=== PATIENT | female | born 1985 | race Caucasian/White ===

== ENCOUNTER 2017-01-10 21:07 | Inpatient (IN) | payer BC, OTHER ==
[2017-01-10] MEDS ORDERED: Metoclopramide 10 MG/2 ML SDV IVPUSH ONE (22:01)
[2017-01-10] MEDS ORDERED: ceFAZolin 2 GM in Premix Bag 1 BAG IV ONE (22:01)
[2017-01-10] MEDS ORDERED: Citric Acid/Sodium Citrate Solution 30 ML Cup PO ONE (22:01)
[2017-01-10] MEDS ORDERED: Sodium Chloride 0.9% 10 ML Syringe FLUSH PRN (22:01)
--- NOTE | 2017-01-10 22:13 | PCM.LDHP ---
L&D History of Present Illness - General Date of Service: 01/10/17 Admit Problem/Dx: Patient Status Order with Admit Dx/Problem 01/10/17 22:01 Patient Status [ADT] Routine Admission Diagnosis/Problem Admission Diagnosis/Problem Normal Source of Information: Patient History Limitations: Reports: No limitations - History of Present Illness Introduction:: Patient is a 31 y.o at 38 2/7 wks who presents tonight with right sided groin pain, back pain, and cramping. States this started about 2 hours ago. Has felt nauseated with this as well and has thrown up about 3 times. No bleeding or LOF. Getting good FM. Was scheduled for RLTCS next week per her preference. 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 LMP (Approximate): Endocrine/Metabolic History: Reports: Obesity/BMI 30+ - Past Surgical History Female Surgical History: Reports: section (2007) Social & Family History - Family History Family Medical History: Noncontributory - Tobacco Use Smoking Status *Q: Former Smoker - Alcohol Use Alcohol Use History: No - Recreational Drug Use Recreational Drug Use: No H&P Review of Systems - Review of Systems: Review Of Systems: See Below General: Reports: no symptoms Pulmonary: Reports: No Symptoms Cardiovascular: Reports: no symptoms Gastrointestinal: Reports: Abdominal pain, Nausea Genitourinary: Reports: no symptoms Musculoskeletal: Reports: back pain Skin: Reports: no symptoms Psychiatric: Reports: no symptoms L&D Exam - Exam Exam: See Below - OB Specific Contraction Intensity: Moderate movement: active heart tones: present heart tones per min: 145 Heart Rate (FHR) Variability: Moderate (6-25 bmp) Presentation: Vertex - Colbert Score Colbert Score Cervix Position: Midposition Colbert Score Consistency: Soft Colbert Score Effacement: >80% Colbert Score Dilation: 3-4 cm Colbert Score Infant's Station: -2 Colbert Score Total: 9 - Exam General: alert, oriented, cooperative Lungs: Clear to auscultation, Normal respiratory effort Cardiovascular: regular rate, regular rhythm Abdomen: Soft Genitourinary: Normal external exam Back Exam: normal inspection Extremities: normal inspection Skin: warm, dry, intact - Problem List (1) 38 weeks gestation of SNOMED Code(s): 40734849 ICD Code: Z3A.38 - 38 WEEKS GESTATION OF Status: Acute Current Visit: Yes (2) History of SNOMED Code(s): 694046506 ICD Code: Z98.891 - HISTORY OF UTERINE SCAR FROM PREVIOUS SURGERY Status: Acute Current Visit: Yes Problem List Initiated/Reviewed/Updated: Yes Orders Last 24hrs: Active Orders 24 hr Category Date Time Status Patient Status [ADT] Routine ADT 01/10/17 22:01 Ordered Communication Order [RC] ROUTINE Care 01/10/17 22:01 Ordered Heart Tones [RC] PER UNIT ROUTINE Care 01/10/17 22:01 Ordered Peripheral IV Care [RC] . DIRECTED Care 01/10/17 22:02 Ordered Procedure Site Prep Instruct [RC] ASDIRECTED Care 01/10/17 22:01 Ordered Verify Patient Consent Obtain [RC] PER UNIT ROUTINE Care 01/10/17 22:01 Ordered Vital Signs [RC] PFP Care 01/10/17 22:01 Ordered CBC W/O DIFF,HEMOGRAM [HEME] Routine Lab 01/10/17 22:01 Ordered TYPE AND SCREEN [BBK] Routine Lab 01/10/17 22:01 Ordered Citric Acid/Sodium Citrate [Bicitra Solution] Med 01/10/17 22:01 Once 30 ml PO ONETIME ONE Lactated Ringers @ 125 MLS/HR(1000ml) Med 01/10/17 22:15 Ordered Lactated Ringers [Ringers, Lactated] 1,000 ml IV ASDIRECTED Metoclopramide [Reglan] Med 01/10/17 22:01 Once 10 mg IVPUSH ONETIME ONE Sodium Chloride 0.9% [Saline Flush] Med 01/10/17 22:01 Ordered 10 ml FLUSH ASDIRECTED PRN ceFAZolin [Ancef] 2 gm Med 01/10/17 22:01 Ordered Premix Bag 1 bag IV ONETIME Peripheral IV Insertion Adult [OM.PC] Routine Oth 01/10/17 22:01 Ordered Schedule Procedure [COMM] Per Unit Routine Oth 01/10/17 22:01 Ordered Resuscitation Status Routine Resus Stat 01/10/17 22:01 Ordered Assessment/Plan Comment:: 31 y/o at 38 2/7 wks who presents tonight with groin/back pain and findings of cervical change and significant effacement since last clinical exam - likely early labor. Again discussed option of TOLAC as patient is here in spontaneous labor, but she declines. Would like to proceed with RLTCS. * CBC and T&S * NPO * Ancef OCTOR * Consent reviewed and signed Marina Quan MD
[2017-01-10] MEDS ORDERED: Lactated Ringers 1,000 ML IV SCH (22:15)
--- NOTE | 2017-01-10 22:28 | PCM.OPNOTE ---
- General Post-Op/Procedure Note Date of Surgery/Procedure: 01/10/17 Operative Procedure(s): Repeat low transverse Findings: * Minimal scar tissue noted between the rectus and fascia. Minimal scar tissue between uterus and bladder * Baby girl in a vertex presentation with APGARS of 6 & 8 and weight of 8 lbs 11 oz * Normal appearance to the uterus and ovaries. Right sided fallopian tube dilated consistent with known hydrosalpinx. Pre Op Diagnosis: 38 3/7 wks gestation. Labor. History of , declines TOLAC Post-Op Diagnosis: Same Anesthesia Technique: Spinal Primary Surgeon: Marina Quan Secondary Surgeon: Rufino Gamino Jr Anesthesia Provider: Libertad Whitley Pathology: * Cord blood collected * Placenta discarded Fluid Replacement, Intraop: 2,500 Output, Urine Amount: 225 EBL in mLs: 1,200 Complications: None Condition: Good Free Text/Narrative:: The risks, benefits, indications, potential complications, and alternatives were explained to the patient and informed consent obtained. After induction of anesthesia, the patient was placed in a supine position and then draped and prepped in the usual sterile manner. A Pfannenstiel incision was made and carried down through the subcutaneous tissue to the fascia. Fascial incision was made and extended transversely. The fascia was from the underlying rectus tissue superiorly and inferiorly. The peritoneum was identified and entered. Peritoneal incision was extended longitudinally. The utero-vesical peritoneal reflection was incised transversely and the bladder flap was bluntly freed from the lower uterine segment. A low transverse uterine incision was made sharply with a scalpel and extended bluntly in a cephalocaudad direction. A baby girl was delivered from a vertex presentation with APGARS as above. After the umbilical cord was clamped and cut cord blood was obtained for evaluation. The placenta was removed intact and appeared normal. The uterus was exteriorized and cleared of clots. The uterine outline and ovaries appeared normal. There was findings of known hydrosalpinx of right fallopian tube The uterine incision was closed with running locked sutures of 0 Vicryl. At this time poor uterine tone noted and so dose of methergine given. Hemostasis was obtained with a second imbricating layer of 0 vicryl. Uterine tone improved by this time. The uterus was then placed back into the abdomen. The infracolic gutters were cleared of blood clots. The fascia was then reapproximated with running sutures of 0 Vicryl. The sucutaneous tissue was irrigated with sterile warm normal saline, hemostasis obtained with cautery. This layer was closed with a running 0 vicryl suture. The skin was reapproximated with running Subcuticular 4-0 monocryl sutures. Instrument, sponge, and needle counts were correct prior the abdominal closure and at the conclusion of the case.
[2017-01-10] MEDS ORDERED: Oxytocin 10 Units/1 ML SDV ONE (23:24)
[2017-01-10] MEDS ORDERED: Lactated Ringers 2,000 ML ONE (23:24)
[2017-01-10] MEDS ORDERED: ceFAZolin 1 GM Vial ONE (23:24)
[2017-01-10] MEDS ORDERED: Ketorolac 30 MG/ML SDV ONE (23:24)
[2017-01-10] MEDS ORDERED: Morphine PF 10 MG/10 ML SDV ONE (23:24)
[2017-01-10] MEDS ORDERED: Ondansetron 4 MG/2 ML SDV ONE (23:24)
--- NOTE | 2017-01-11 00:05 | PCM.PREANE ---
Preanesthetic Assessment - Anesthesia/Transfusion/Family Hx Anesthesia History: Prior Anesthesia Without Reaction Family History of Anesthesia Reaction: No Transfusion History: No Prior Transfusion(s) - Review of Systems General: No Symptoms Pulmonary: No Symptoms Cardiovascular: No Symptoms Gastrointestinal: No symptoms Neurological: No Symptoms Other: Reports: None - Physical Assessment O2 Sat by Pulse Oximetry: 100 Respiratory Rate: 16 Vital Signs: Last Vital Signs Temp 99.2 F 01/10/17 22:01 Pulse 84 01/10/17 22:01 Resp 16 01/10/17 22:01 BP 130/79 01/10/17 22:01 Pulse Ox 100 01/10/17 22:01 Height: 5 ft 6 in Weight: 144.696 kg ASA Class: 2E Mental Status: Alert & Oriented x3 Airway Class: Mallampati = 1 Dentition: Reports: Normal Dentition Thyro-Mental Finger Breadths: 3 Mouth Opening Finger Breadths: 3 ROM/Head Extension: Full Lungs: Clear to auscultation, Normal respiratory effort Cardiovascular: Regular Rate, Regular Rhythm - Lab Values: Laboratory Last Values WBC 13.06 K/mm3 (3.98-10.04) H 01/10/17 22:16 RBC 4.43 M/mm3 (3.98-5.22) 01/10/17 22:16 Hgb 12.9 gm/L (11.2-15.7) 01/10/17 22:16 Hct 38.8 % (34.1-44.9) 01/10/17 22:16 MCV 87.6 fl (79.4-94.8) 01/10/17 22:16 MCH 29.1 pg (25.6-32.2) 01/10/17 22:16 MCHC 33.2 g/dl (32.2-35.5) 01/10/17 22:16 RDW Std Deviation 46.4 fL (36.4-46.3) H 01/10/17 22:16 Plt Count 293 K/mm3 (182-369) 01/10/17 22:16 MPV 10.4 fl (9.4-12.3) 01/10/17 22:16 - Allergies Allergies/Adverse Reactions: Allergies Allergy/AdvReac Type Severity Reaction Status Date / Time No Known Allergies Allergy Verified 01/10/17 22:26 - Blood Blood Available: No - Acknowledgements Anesthesia Type Planned: Spinal Pt an Appropriate Candidate for the Planned Anesthesia: Yes Alternatives and Risks of Anesthesia Discussed w Pt/Guardian: Yes Pt/Guardian Understands and Agrees with Anesthesia Plan: Yes PreAnesthesia Questionnaire Other HEENT History: wears glasses and states she snores Cardiovascular History: Reports: None Respiratory History: Reports: Other (see below) Other Respiratory History: pt snores Gastrointestinal History: Reports: GERD (with preg) 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 Endocrine/Metabolic History: Reports: Obesity/BMI 30+ Other Endocrine/Metabolic History: states she is pre diabetic Oncologic (Cancer) History: Reports: None - Infectious Disease History Infectious Disease History: Reports: Chicken pox, Measles - Past Surgical History Female Surgical History: Reports: section (2007) - History Comment History Comment: vits and zyrtec for seasonal allergies and zantac for GERD - SUBSTANCE USE Smoking Status *Q: Former Smoker (quit 10 years ago) Tobacco Use Within Last Twelve Months: No Second Hand Smoke Exposure: No Days Per Week of Alcohol Use: 0 Recreational Drug Use History: No - CURRENT (IN HOUSE) MEDS Current Meds: Current Medications Lactated Ringer's (Ringers, Lactated) 1,000 mls @ 125 mls/hr IV ASDIRECTED [facility] Last Admin: 01/10/17 22:36 Dose: 125 mls/hr Sodium Chloride (Saline Flush) 10 ml FLUSH ASDIRECTED PRN PRN Reason: Keep Vein Open Discontinued Medications Cefazolin Sodium (Ancef) Confirm Administered Dose 2 gm .ROUTE .STK-MED ONE Stop: 01/10/17 23:25 Citric Acid/Sodium Citrate (Bicitra Solution) 30 ml PO ONETIME ONE Stop: 01/10/17 22:02 Last Admin: 01/10/17 22:38 Dose: 30 ml Cefazolin Sodium/Dextrose 2 gm (/ Premix) 50 mls @ 100 mls/hr IV ONETIME ONE Stop: 01/10/17 22:30 Lactated Ringer's (Ringers, Lactated) Confirm Administered Dose 2,000 mls @ as directed .ROUTE .STK-MED ONE Stop: 01/10/17 23:25 Ketorolac Tromethamine (Toradol) Confirm Administered Dose 30 mg .ROUTE .STK- MED ONE Stop: 01/10/17 23:25 Metoclopramide HCl (Reglan) 10 mg IVPUSH ONETIME ONE Stop: 01/10/17 22:02 Last Admin: 01/10/17 22:37 Dose: 10 mg Morphine Sulfate (Duramorph Pf) Confirm Administered Dose 10 mg .ROUTE .STK-MED ONE Stop: 01/10/17 23:25 Ondansetron HCl (Zofran) Confirm Administered Dose 4 mg .ROUTE .STK-MED ONE Stop: 01/10/17 23:25 Oxytocin (Pitocin) Confirm Administered Dose 10 unit .ROUTE .STK-MED ONE Stop: 01/10/17 23:25
[2017-01-11] MEDS ORDERED: ceFAZolin 1 GM Vial ONE (00:34)
[2017-01-11] MEDS ORDERED: Methylergonovine 0.2 MG/1 ML Amp ONE (00:35)
[2017-01-11] MEDS ORDERED: fentaNYL 100 MCG/2 ML SDV IVPUSH PRN (00:43)
[2017-01-11] MEDS ORDERED: Ondansetron 4 MG/2 ML SDV IVPUSH PRN (00:43)
[2017-01-11] MEDS ORDERED: diphenhydrAMINE 50 MG/ML SDV IVPUSH PRN ×2 (00:43→04:53)
[2017-01-11] MEDS ORDERED: Meperidine PF 50 MG/ML Syringe IVPUSH PRN (00:43)
[2017-01-11] MEDS ORDERED: ePHEDrine/Normal Saline 25 MG/5 ML Syringe ONE (00:45)
--- NOTE | 2017-01-11 01:23 | PCM.POSTAN ---
POST ANESTHESIA ASSESSMENT - MENTAL STATUS Mental Status: alert, oriented - VITAL SIGNS Pulse Rate: 67 SaO2: 100 Resp Rate: 18 Blood Pressure: 119/68 Temperature: 98.3 F - RESPIRATORY Respiratory Status: respiratory rate WNL, airway patent, O2 saturation stable, supplemental oxygen - CARDIOVASCULAR CV Status: pulse rate WNL, blood pressure stable - GASTROINTESTINAL GI Status: no symptoms - PAIN Pain Score: 0 - POST OP HYDRATION Hydration Status: adequate & stable
[2017-01-11] MEDS ORDERED: Dextrose 5%-Lactated Ringers 1,000 ML ONE (04:27)
[2017-01-11] MEDS ORDERED: Acetaminophen/oxyCODONE 325-5 MG Tab PO PRN (04:53)
[2017-01-11] MEDS ORDERED: Docusate Sodium 100 MG Cap PO PRN (04:53)
[2017-01-11] MEDS ORDERED: Dextrose 5%-Lactated Ringers 1,000 ML IV SCH (04:53)
[2017-01-11] MEDS: Ketorolac 30 MG/ML SDV IVPUSH SCH ×3 (08:00→20:03)
[2017-01-12] MEDS ORDERED: Ibuprofen 600 MG Tab PO PRN (01:30)
--- NOTE | 2017-01-12 05:27 | PCM.PNPP ---
- General Info Date of Service: 01/12/17 Functional Status: Reports: pain controlled, tolerating diet, ambulating, urinating - Review of Systems General: Reports: No Symptoms Pulmonary: Reports: no symptoms Cardiovascular: Reports: No Symptoms Gastrointestinal: Reports: Abdominal pain (managed with medications) Genitourinary: Reports: no symptoms Musculoskeletal: Reports: no symptoms Neurological: Reports: No Symptoms - Patient Data Vital Signs - most recent: Last Vital Signs Temp 37.2 C 01/12/17 03:19 Pulse 64 01/12/17 03:19 Resp 14 01/12/17 03:19 BP 159/84 H 01/12/17 03:19 Pulse Ox 100 01/12/17 03:19 Weight - most recent: 144.696 kg I&O - last 24 hours: Intake & Output 01/11/17 01/11/17 01/12/17 14:59 22:59 06:59 Intake Total 4040 360 Output Total 1725 Balance 2315 360 Lab Results - last 24 hrs: Laboratory Results - last 24 hr 01/10/17 Range/Units 22:16 Blood Type A POSITIVE Gel Antibody Screen Negative Med Orders - Current: Current Medications Diphenhydramine HCl (Benadryl) 25 mg IVPUSH Q6H PRN PRN Reason: Itching or Nausea Last Admin: 01/11/17 11:13 Dose: 25 mg Docusate Sodium (Colace) 100 mg PO Q12H PRN PRN Reason: Constipation Ibuprofen (Motrin) 600 mg PO Q6H PRN PRN Reason: mild pain or fever Oxycodone/Acetaminophen (Percocet 325-5 Mg) 2 tab PO Q4H PRN PRN Reason: Pain (moderate 4-6) Discontinued Medications Cefazolin Sodium (Ancef) Confirm Administered Dose 2 gm .ROUTE .STK-MED ONE Stop: 01/10/17 23:25 Cefazolin Sodium (Ancef) Confirm Administered Dose 1 gm .ROUTE .STK-MED ONE Stop: 01/11/17 00:35 Citric Acid/Sodium Citrate (Bicitra Solution) 30 ml PO ONETIME ONE Stop: 01/10/17 22:02 Last Admin: 01/10/17 22:38 Dose: 30 ml Diphenhydramine HCl (Benadryl) 25 mg IVPUSH Q6H PRN PRN Reason: pruritis Stop: 01/11/17 03:00 Ephedrine Sulfate (Ephedrine In Ns) Confirm Administered Dose 25 mg .ROUTE .STK- MED ONE Stop: 01/11/17 00:46 Fentanyl (Sublimaze) 50 mcg IVPUSH Q5M PRN PRN Reason: Pain Stop: 01/11/17 03:00 Lactated Ringer's (Ringers, Lactated) 1,000 mls @ 125 mls/hr IV ASDIRECTED [facility] Last Admin: 01/10/17 22:36 Dose: 125 mls/hr Cefazolin Sodium/Dextrose 2 gm (/ Premix) 50 mls @ 100 mls/hr IV ONETIME ONE Stop: 01/10/17 22:30 Last Admin: 01/11/17 04:56 Dose: Not Given Lactated Ringer's (Ringers, Lactated) Confirm Administered Dose 2,000 mls @ as directed .ROUTE .STK-MED ONE Stop: 01/10/17 23:25 Dextrose/Lactated Ringer's (Dextrose 5%-Lactated Ringers) Confirm Administered Dose 1,000 mls @ as directed .ROUTE .STK-MED ONE Stop: 01/11/17 04:28 Last Admin: 01/11/17 04:56 Dose: Not Given Dextrose/Lactated Ringer's (Dextrose 5%-Lactated Ringers) 1,000 mls @ 125 mls/ hr IV ASDIRECTED [facility] Stop: 01/11/17 12:52 Last Admin: 01/11/17 04:33 Dose: 125 mls/hr Ketorolac Tromethamine (Toradol) Confirm Administered Dose 30 mg .ROUTE .STK- MED ONE Stop: 01/10/17 23:25 Ketorolac Tromethamine (Toradol) 30 mg IVPUSH Q6H [facility] Stop: 01/11/17 19:31 Last Admin: 01/11/17 20:03 Dose: 30 mg Meperidine HCl (Demerol) 12.5 mg IVPUSH ONETIME PRN PRN Reason: shivering Stop: 01/12/17 00:44 Methylergonovine Maleate (Methergine) Confirm Administered Dose 0.4 mg .ROUTE .STK-MED ONE Stop: 01/11/17 00:36 Last Admin: 01/11/17 00:40 Dose: 0.2 mg Metoclopramide HCl (Reglan) 10 mg IVPUSH ONETIME ONE Stop: 01/10/17 22:02 Last Admin: 01/10/17 22:37 Dose: 10 mg Morphine Sulfate (Duramorph Pf) Confirm Administered Dose 10 mg .ROUTE .STK-MED ONE Stop: 01/10/17 23:25 Ondansetron HCl (Zofran) Confirm Administered Dose 4 mg .ROUTE .STK-MED ONE Stop: 01/10/17 23:25 Ondansetron HCl (Zofran) 4 mg IVPUSH ONETIME PRN PRN Reason: Nausea/Vomiting Stop: 01/11/17 03:00 Last Admin: 01/11/17 02:06 Dose: 4 mg Oxytocin (Pitocin) Confirm Administered Dose 10 unit .ROUTE .STK-MED ONE Stop: 01/10/17 23:25 Sodium Chloride (Saline Flush) 10 ml FLUSH ASDIRECTED PRN PRN Reason: Keep Vein Open - Interaction Infant Disposition, : [place] in Room with Family Infant Interaction: Holding Infant Feeding: Bottle Fed Infant Support Person: - Recovery Exam Fundal Tone: Firm Fundal Level: 1 Fingerbreadths Below Umbilicus Fundal Placement: Midline Lochia Amount: Small Lochia Color: Rubra/Red Perineum Description: Intact, Minimal Bruising/Swelling Bladder Status: Nonpalpable, Voiding Urinary Elimination: Indwelling Catheter - Exam General: alert, oriented, cooperative Lungs: Clear to auscultation, Normal respiratory effort Cardiovascular: Regular Rate, Regular Rhythm Abdomen: soft, tenderness (appropriate post op) Extremities: edema Skin: warm, dry, intact - Problem List & Annotations (1) 38 weeks gestation of SNOMED Code(s): 24855557 Code(s): Z3A.38 - 38 WEEKS GESTATION OF Status: Acute Current Visit: Yes (2) History of SNOMED Code(s): 813141503 Code(s): Z98.891 - HISTORY OF UTERINE SCAR FROM PREVIOUS SURGERY Status: Acute Current Visit: Yes (3) S/P SNOMED Code(s): 198876374, 534462573 Code(s): Z98.891 - HISTORY OF UTERINE SCAR FROM PREVIOUS SURGERY Status: Acute Current Visit: Yes - Problem List Review Problem List Initiated/Reviewed/Updated: Yes - My Orders Last 24 Hours: My Active Orders 01/11/17 04:53 Activity as Tolerated [RC] .Routine Antiembolic Devices [RC] PER UNIT ROUTINE Communication Order [RC] PER UNIT ROUTINE May Shower [RC] PER UNIT ROUTINE Notify Provider Intake and Out [RC] ASDIRECTED RT Incentive Spirometry [RC] Q2HWA Vital Signs [RC] Q4HR Acetaminophen/oxyCODONE [Percocet 325-5 MG] 2 tab PO Q4H PRN Docusate Sodium [Colace] 100 mg PO Q12H PRN diphenhydrAMINE [Benadryl] 25 mg IVPUSH Q6H PRN Assess Lochia [WOMSER] Per Unit Routine Assess Uterine Involution [WOMSER] Per Unit Routine Heat Therapy [OM.PC] Per Unit Routine Peripheral IV Discontinue [OM.PC] Routine Sequential Compression Device [OM.PC] Per Unit Routine 01/11/17 Breakfast Regular Diet [DIET] 01/12/17 01:30 Ibuprofen [Motrin] 600 mg PO Q6H PRN 01/12/17 05:11 CBC W/O DIFF,HEMOGRAM [HEME] AM - Assessment Assessment:: 31 y/o G3 now P2012 POD#1 from [facility] at 38 3/7 wks - Plan Plan:: Post op * Routine cares * Bottle feeding * Requests discharge today. Surgery was just after mid-night and so is on 2nd day of recovery even though only POD#1. Feel this is reasonable. Will follow up in 1-2 weeks for incision check
--- NOTE | 2017-01-12 06:59 | PCM.DCSUM1 ---
Discharge Summary - Discharge Data Discharge Date: 01/12/17 Discharge Disposition: Home, Self-Care 01 Condition: Good - Discharge Diagnosis/Problem(s) (1) 38 weeks gestation of SNOMED Code(s): 55904756 ICD Code: Z3A.38 - 38 WEEKS GESTATION OF Status: Acute Current Visit: Yes (2) History of SNOMED Code(s): 449249033 ICD Code: Z98.891 - HISTORY OF UTERINE SCAR FROM PREVIOUS SURGERY Status: Acute Current Visit: Yes (3) S/P SNOMED Code(s): 827845471, 732298226 ICD Code: Z98.891 - HISTORY OF UTERINE SCAR FROM PREVIOUS SURGERY Status: Acute Current Visit: Yes - Patient Summary/Data Operative Procedure(s) Performed: Repeat low transverse Complications: None Consults: None Recommended Follow-up Testing/Procedures: Follow up in 1-2 weeks for incision check and in 5-6 weeks for check Hospital Course: 31 y/o at 38 2/7 wks presented in early labor. She was taken for RLTCS per her preference. See operative note for full details. she did well and was discharged home on POD#1 per her request. - Patient Instructions Diet: Regular Diet as Tolerated Activity: No Lifting Over 10 Pounds Activity, Other: Pelvic Rest for 6 weeks Driving: Do Not Drive (While taking narcotics ) Showering/Bathing: May Shower, No Tub Bathing/Swimming Wound/Incision Care: Keep Operative Site/Wound Site Clean and Dry Notify Provider of: Fever, Increased Pain, Swelling and Redness, Drainage, Nausea and/or Vomiting - Discharge Plan Prescriptions/Med Rec: Acetaminophen/oxyCODONE [Percocet 325-5 MG] 2 tab PO Q4H PRN #30 tablet PRN Reason: Pain Home Medications: Home Meds Pnv with Ca,No.72/Iron/Fa [Pnv Plus Multivit Tab] 1 each PO DAILY 01/11 [History] Acetaminophen/oxyCODONE [Percocet 325-5 MG] 2 tab PO Q4H PRN #30 tablet [Rx] Docusate Sodium [Colace] 100 mg PO Q12H PRN #0 cap 01/12/17 [Rx] Ibuprofen [IJD: Ibuprofen] 600 mg PO Q6H PRN #0 tablet 01/12/17 [Rx] Referrals: Marina Quan MD [Primary Care Provider] - (1-2 weeks for incision check 5-6 weeks for check Please call and make appointments that work with your schedule. ) - Discharge Summary/Plan Comment DC Time >30 min.: No - Patient Data Vitals - Most Recent: Last Vital Signs Temp 37.2 C 01/12/17 03:19 Pulse 64 01/12/17 03:19 Resp 14 01/12/17 03:19 BP 159/84 H 01/12/17 03:19 Pulse Ox 100 01/12/17 03:19 Weight - Most Recent: 144.696 kg I&O - Last 24 hours: Intake & Output 01/11/17 01/11/17 01/12/17 14:59 22:59 06:59 Intake Total 4040 360 Output Total 1725 Balance 2315 360 Lab Results - Last 24 hrs: Laboratory Results - last 24 hr 01/10/17 01/12/17 Range/Units 22:16 06:05 WBC 13.58 H (3.98-10.04) K/mm3 RBC 3.50 L (3.98-5.22) M/mm3 Hgb 10.2 L (11.2-15.7) gm/L Hct 31.7 L (34.1-44.9) % MCV 90.6 (79.4-94.8) fl MCH 29.1 (25.6-32.2) pg MCHC 32.2 (32.2-35.5) g/dl RDW Std Deviation 46.9 H (36.4-46.3) fL Plt Count 256 (182-369) K/mm3 MPV 10.5 (9.4-12.3) fl Blood Type A POSITIVE Gel Antibody Screen Negative Med Orders - Current: Current Medications Diphenhydramine HCl (Benadryl) 25 mg IVPUSH Q6H PRN PRN Reason: Itching or Nausea Last Admin: 01/11/17 11:13 Dose: 25 mg Docusate Sodium (Colace) 100 mg PO Q12H PRN PRN Reason: Constipation Ibuprofen (Motrin) 600 mg PO Q6H PRN PRN Reason: mild pain or fever Oxycodone/Acetaminophen (Percocet 325-5 Mg) 2 tab PO Q4H PRN PRN Reason: Pain (moderate 4-6) Discontinued Medications Cefazolin Sodium (Ancef) Confirm Administered Dose 2 gm .ROUTE .STK-MED ONE Stop: 01/10/17 23:25 Cefazolin Sodium (Ancef) Confirm Administered Dose 1 gm .ROUTE .STK-MED ONE Stop: 01/11/17 00:35 Citric Acid/Sodium Citrate (Bicitra Solution) 30 ml PO ONETIME ONE Stop: 01/10/17 22:02 Last Admin: 01/10/17 22:38 Dose: 30 ml Diphenhydramine HCl (Benadryl) 25 mg IVPUSH Q6H PRN PRN Reason: pruritis Stop: 01/11/17 03:00 Ephedrine Sulfate (Ephedrine In Ns) Confirm Administered Dose 25 mg .ROUTE .STK- MED ONE Stop: 01/11/17 00:46 Fentanyl (Sublimaze) 50 mcg IVPUSH Q5M PRN PRN Reason: Pain Stop: 01/11/17 03:00 Lactated Ringer's (Ringers, Lactated) 1,000 mls @ 125 mls/hr IV ASDIRECTED [facility] Last Admin: 01/10/17 22:36 Dose: 125 mls/hr Cefazolin Sodium/Dextrose 2 gm (/ Premix) 50 mls @ 100 mls/hr IV ONETIME ONE Stop: 01/10/17 22:30 Last Admin: 01/11/17 04:56 Dose: Not Given Lactated Ringer's (Ringers, Lactated) Confirm Administered Dose 2,000 mls @ as directed .ROUTE .STK-MED ONE Stop: 01/10/17 23:25 Dextrose/Lactated Ringer's (Dextrose 5%-Lactated Ringers) Confirm Administered Dose 1,000 mls @ as directed .ROUTE .STK-MED ONE Stop: 01/11/17 04:28 Last Admin: 01/11/17 04:56 Dose: Not Given Dextrose/Lactated Ringer's (Dextrose 5%-Lactated Ringers) 1,000 mls @ 125 mls/ hr IV ASDIRECTED [facility] Stop: 01/11/17 12:52 Last Admin: 01/11/17 04:33 Dose: 125 mls/hr Ketorolac Tromethamine (Toradol) Confirm Administered Dose 30 mg .ROUTE .STK- MED ONE Stop: 01/10/17 23:25 Ketorolac Tromethamine (Toradol) 30 mg IVPUSH Q6H [facility] Stop: 01/11/17 19:31 Last Admin: 01/11/17 20:03 Dose: 30 mg Meperidine HCl (Demerol) 12.5 mg IVPUSH ONETIME PRN PRN Reason: shivering Stop: 01/12/17 00:44 Methylergonovine Maleate (Methergine) Confirm Administered Dose 0.4 mg .ROUTE .STK-MED ONE Stop: 01/11/17 00:36 Last Admin: 01/11/17 00:40 Dose: 0.2 mg Metoclopramide HCl (Reglan) 10 mg IVPUSH ONETIME ONE Stop: 01/10/17 22:02 Last Admin: 01/10/17 22:37 Dose: 10 mg Morphine Sulfate (Duramorph Pf) Confirm Administered Dose 10 mg .ROUTE .STK-MED ONE Stop: 01/10/17 23:25 Ondansetron HCl (Zofran) Confirm Administered Dose 4 mg .ROUTE .STK-MED ONE Stop: 01/10/17 23:25 Ondansetron HCl (Zofran) 4 mg IVPUSH ONETIME PRN PRN Reason: Nausea/Vomiting Stop: 01/11/17 03:00 Last Admin: 01/11/17 02:06 Dose: 4 mg Oxytocin (Pitocin) Confirm Administered Dose 10 unit .ROUTE .STK-MED ONE Stop: 01/10/17 23:25 Sodium Chloride (Saline Flush) 10 ml FLUSH ASDIRECTED PRN PRN Reason: Keep Vein Open *Q Meaningful Use (DIS) - VTE *Q VTE Criteria *Q: - Stroke *Q Stroke Criteria *Q: - AMI *Q AMI Criteria *Q:
[2017-01-12 09:30] VITALS: BP 145/81
== END 2017-01-12 10:16 | disposition home or self-care (01) | DRG 540 ==
LOC: JD.OBCHECK 21:07 → JD.OB 21:23 → JD.OBCHECK 22:01 → OBSVTOIN 01-11 00:39 → JD.OB 01-11 01:03 → JD.MS 01-12 03:19
PROVIDERS: ADMIT Obstetrics & Gynecology; ATTEND Obstetrics & Gynecology
PROC: 10D00Z1 Extraction of Products of Conception, Low, Open Approach (ICD-10-PCS; principal; 2017-01-11)
DX: O34.211 Maternal care for low transverse scar from previous cesarean delivery (principal); N85.8 Other specified noninflammatory disorders of uterus; Z3A.38 38 weeks gestation of pregnancy; Z37.0 Single live birth; O99.214 Obesity complicating childbirth; Z87.891 Personal history of nicotine dependence
CPT/HCPCS: 01961; 36415; 85027; 86850; 86900; 86901; 94762; A9270-GY; J0690; J1200; J1885; J2210; J2270; J2405; J2590; J2765; J7042; J7050; J7120